=== PATIENT | female | born 1995 | race Caucasian/White ===

== ENCOUNTER 2018-07-21 03:57 | Emergency (ER) | payer OTHER ==
[2018-07-21] MEDS: FAMOTIDINE 20 MG INJ IV (04:55)
[2018-07-21] MEDS: ONDANSETRON 4 MG INJ IV (04:55)
[2018-07-21] MEDS: SOD CHLORIDE 0.9% 500 ML IV (04:56)
[2018-07-21] MEDS: morphine 2 MG INJ IV ×2 (04:56→06:21)
[2018-07-21 04:57] LABS: ADD MAN DIFF? NO
[2018-07-21 05:00] LABS: ABNORMAL IP MESSAGE 1; BASOPHILS % 0.2 % (0.0-2.0); EOSINOPHILS # 0.1 10^3/ul (0.0-0.5); EOSINOPHILS % 1.7 % (0.0-7.0); HEMATOCRIT 34.1 % (37.0-47.0); HEMOGLOBIN 11.6 g/dl (12.0-16.0); LYMPHOCYTES # 0.5 10^3/ul (0.8-2.9); LYMPHOCYTES % 10.5 % (15.0-51.0); MEAN CORPUSCULAR HEMOGLOBIN 30.6 pg (29.0-33.0); MEAN PLATELET VOLUME 10.1 fl (7.4-10.4); MONOCYTE # 0.3 10^3/ul (0.3-0.9); MONOCYTES % 5.9 % (0.0-11.0); NEUTROPHIL # 3.9 10^3/ul (1.6-7.5); NEUTROPHILS % 81.5 % (39.0-77.0); PLATELET COUNT 126 10^3/UL (140-415); RED BLOOD COUNT 3.79 10^6/ul (4.20-5.40); RED CELL DISTRIBUTION WIDTH 12.2 % (11.5-14.5)
[2018-07-21 05:00] LABS: WHITE BLOOD COUNT 4.8 10^3/ul (4.8-10.8)
[2018-07-21 05:12] LABS: POSITIVE DIFF @See below
[2018-07-21 05:16] LABS: ALANINE AMINOTRANSFERASE 18 IU/L (13-69); ALBUMIN 4.5 g/dl (3.3-4.9); ALKALINE PHOSPHATASE 46 IU/L (42-121); ANION GAP 12 (5-13); ASPARTATE AMINO TRANSFERASE 17 IU/L (15-46); BILIRUBIN,INDIRECT 1.5 mg/dl (0-1.1); BILIRUBIN,TOTAL 1.5 mg/dl (0.2-1.3); BLOOD UREA NITROGEN 7 mg/dl (7-20); CALCIUM 9.1 mg/dl (8.4-10.2); CARBON DIOXIDE 23 mmol/L (21-31); CHLORIDE 105 mmol/L (97-110); CREATININE 0.46 mg/dl (0.44-1.00); Estimated GFR > 60 mL/min (>60); GLUCOSE 106 mg/dl (70-220); LIPASE 40 U/L (23-300); POTASSIUM 3.3 mmol/L (3.5-5.1); SODIUM 140 mmol/L (135-144); TOTAL PROTEIN 7.5 g/dl (6.1-8.1)
[2018-07-21 05:17] LABS: ADD UMIC YES; UR ASCORBIC ACID NEGATIVE (NEGATIVE); UR BACTERIA FEW /HPF (NONE SEEN); UR BILIRUBIN (Dip) NEGATIVE (NEGATIVE); UR BLOOD (Dip) 1+ mg/dL (NEGATIVE); UR CLARITY CLOUDY (CLEAR); UR COLOR AMBER (YELLOW); UR GLUCOSE (Dip) NEGATIVE (NEGATIVE); UR KETONES (Dip) NEGATIVE (NEGATIVE); UR LEUKOCYTE ESTERASE (Dip) 3+ Leu/ul (NEGATIVE); UR MUCUS MANY /HPF (NONE SEEN); UR NITRITE (Dip) NEGATIVE (NEGATIVE); UR RBC 4 /HPF (0-5); UR SPECIFIC GRAVITY (Dip) 1.025 (1.003-1.030); UR SQUAMOUS EPITHELIAL CELL MODERATE /HPF (FEW); UR TOTAL PROTEIN (Dip) NEGATIVE (NEGATIVE); UR UROBILINOGEN (Dip) NEGATIVE (NEGATIVE); UR WBC 58 /HPF (0-5)
[2018-07-21] MEDS: KETOROLAC 30 MG INJ IV (05:22)
[2018-07-21] MEDS: CIPROFLOXACIN 400MG/D5W 200 ML IVPB (05:45)
[2018-07-21] MEDS: ONDANSETRON (ODT) 4 MG TAB ODT (06:42)
[2018-07-21] MEDS: SOD CHLORIDE 0.9% 100 ML (08:02)
[2018-07-21] MEDS: IOHEXOL 300MG/ML 150 ML BTL (08:02)
== END 2018-07-21 08:39 | disposition home or self-care (01) ==
LOC: FTE 03:57
DX: N39.0 Urinary tract infection, site not specified (principal)
CPT/HCPCS: 36415; 74177; 80053; 81001; 81025; 83690; 85025; 87086; 96361; 96365; 96375; 96376; 99285-25

== ENCOUNTER 2018-12-12 12:48 | Emergency (ER) | payer SELFPAY, OTHER | END 2018-12-12 13:33 | disposition left against medical advice (07) | LOC: E/R 12:48 | DX: Z53.21 Procedure and treatment not carried out due to patient leaving prior to being seen by health care provider (principal) ==